=== PATIENT | female | born 1955 | race Caucasian/White ===

== ENCOUNTER 2025-08-22 03:29 | Emergency (ER) | payer OTHER, MEDICARE, SELFPAY ==
[2025-08-22 03:35] VITALS: BP 195/72; PULSE 69; RESP 16; TEMP 36.5; O2SAT 98; BMI 23.4
--- NOTE | 2025-08-22 03:40 | ECG_ITS ---
Test Reason : PALPITATIONS Blood Pressure : */* mmHG Vent. Rate : 68 BPM Atrial Rate : 68 BPM P-R Int : 150 ms QRS Dur : 84 ms QT Int : 428 ms P-R-T Axes : 61 50 50 degrees QTcB Int : 455 ms Sinus rhythm with Premature supraventricular complexes Possible Left atrial enlargement Borderline ECG No previous ECGs available Referred By: Generic ED Physician Electronically Signed By: KARLA NIXON
[2025-08-22 03:46] VITALS: BP 187/87; PULSE 72; RESP 16; TEMP 36.5; O2SAT 100
[2025-08-22 03:57] LABS: Hematocrit 43.5 % (37.0-47.0); Hemoglobin 14.6 g/dl (12.0-16.0); Imm Gran Abs Auto 0.01 X10*3/uL (0.00-0.03); Imm Gran Pct Auto 0.1 % (0.0-0.4); Lymphocytes Absolute Auto 2.2 X10*3/uL (1.2-4.9); MANUAL DIFF FLAG NO; Mean Corpuscular HGB Conc 33.6 g/dl (31.0-35.0); Mean Corpuscular Hemoglobin 30.8 pg (27.0-33.0); Mean Corpuscular Volume 91.8 fL (80.0-98.0); NRBC Abs Auto 0.000 X10*3/uL (0.0-0.012); NRBC Pct Auto 0.0 /100WBC (0.0-0.2); Platelet Count 178 X10*3/uL (160-400); Red Blood Count 4.74 X10*6/uL (4.20-5.50); White Blood Count 6.8 X10*3/uL (4.8-10.8)
[2025-08-22 04:21] LABS: Alanine Aminotransferase 28 U/L (0-31); Albumin Level 4.3 g/dL (3.5-5.0); Alkaline Phosphatase 59 U/L (39-117); Anion Gap 14 (12-20); Aspartate Amino Transferase 28 U/L (5-31); Blood Urea Nitrogen 24 mg/dL (9-16); Calcium 9.1 mg/dL (8.4-10.2); Carbon Dioxide 27 mmol/L (22-29); Chloride 106 mmol/L (96-108); Creatinine Clr Calc Pharmacy 34.3; Estimated Glomerular Filt Rate 48; Magnesium 2.2 mg/dL (1.6-2.6); Potassium 4.3 mmol/L (3.3-5.1); Sodium 143 mmol/L (135-145); Total Protein 7.6 g/dL (6.5-8.0)
[2025-08-22 04:23] LABS: IDNOW Serial# 55D5AD1C; Influenza B2 Negative (Negative)
[2025-08-22 04:24] LABS: COVID-19 Test Negative (Negative); IDNOW Serial# 58CA691E
[2025-08-22 04:25] LABS: Troponin-I High Sensitivity 9.9 ng/L (<3.5-17.0)
--- OUTSIDE RECORDS SUMMARY | 2025-08-22 04:51 | XMS_ITS | Encounter Summary ---
Author Organization [facility] Address [address] [facility] [address] [place] [phone] Phone Care Team Providers Care Shell Fisherman Name Role Phone Dena Maza MD, MPH Primary Care Provider + Encounter Details Date Type Department Care Team (Late st Contact Info) Description 12/30/2024 Ancillary Orders [facility], [facility]- [address] [address] Dena Maza MD, MPH [address] [place] [address] [email or web address] Abnormal mammogram (Primary Dx) Social History Tobacco Use Types Packs/Day Years Used Date Smoking Tobacco: Former Cigarettes 0.3 7 1 973 - 1980 Smokeless Tobacco: Never Alcohol Use Standard Drinks/Week Comments Yes 7 (1 standard drink = 0.6 oz pur e alcohol) 1-2 per day Child or Family Care Answer Date Record ed Do you have problems with on e of the following making it difficult for you to work, study, or receive health care? No 08/13/2022 Education Answer Date Recorded Are you interested in more education? Not on carlo e 08/23/2024 Are you concerned about learning? Not on file 08/23/2024 No 08/23/2024 No 08/23/2024 Food Answer Date Recorded Within the past 6 months we worried whether our food would run out before we got money to buy more. Never True 08/13/2022 Within the past 6 months the food we bought just didn't last and we didn't have enough money to get more. Never True Residential Stability Answer Date Recor ded What is your housing situation today? I have anson freeman 08/13/2022 How many times have you move d in the past 12 months? Zero (I did not move) 08/13/2022 Paying for Meds Answer Date Recorded Do you have trouble paying for medicines? No 08/13/2022 Paying Utility Bills Answer Date Record ed Do you have trouble paying your heating or elect ricity bill? No 08/13/2022 Transportation Answer Date Recorded Has the lack of transportati on kept you from medical appointments or from getting medications? No 08/13/2022 Unemployment Answer Date Recorded Are you currently unemployed or working on a part-time or temporary basis, and looking for work? I choose not to answer 08/13/2022 Digital Access Answer Date Recorded No 03/23/2023 No 03/23/2023 Reliable internet access at home? Not on file 03/23/2023 Device with a working camera? Not on file Intimate Partner Violence Answer Date R ecorded Are you denied basic needs s uch as food, clothing, or medical care? No 12/18/2023 In the past 12 months have y ou been in a relationship with a person who hurts, threatens, or tries to control you? No 12/18/2023 Are you denied basic needs s uch as food, clothing, or medical care? No 12/18/2023 In the past 12 months have y ou been in a relationship with a person who hurts, threatens, or tries to control you? 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 Not on file Not on file documented as of this encounter Plan of Treatment Not on file documented as of this encounter Visit Diagnoses Diagnosis Abnormal mammogram- Primary Abnormal mammogram, unspecified documented in this encounter Additional Health Concerns Assessment Noted Time PHQ-2 Depression Total Score: 0 12/26/19 20 1:10 PM EST documented as of this encounter Care Teams Shell Fisherman Relationship Specialty Start Date End Date Dena Maza MD, MPH [address] [place] [phone] [email or web address] PCP - General Family Medicine 12/18/23 documented as of this encounter Additional Source Comments The information contained in this document represents components of the legal health record. It is not the complete legal health record.[facility]
--- OUTSIDE RECORDS SUMMARY | 2025-08-22 04:51 | XMS_ITS | Clinical Summary ---
Author Organization [facility] Address [address] [facility] [address] [place] [address] Phone Care Team Providers Care Contracting Specialist Name Role Phone Dena Maza MD, MPH Primary Care Provider + Allergies Active Allergy Reactions Criticality Noted Date Comments Amoxicillin 07/08/2016 Other reaction(s): rash Codeine 07/08/2016 Other reaction(s): rash Sulfamethoxazole-Trimethopri m 07/08/2016 Other reaction(s): jittery? Medications biotin 1 mg tablet Take 1,000 mcg by mouth daily. Active Active Problems Problem Noted Date Diagnosed Date Acquired hypothyroidism 03/09/2018 Right shoulder pain 02/01/2018 Family History Medical History Relation Comments No Known Problems Brother Coronary artery disease Father Heart disease Father Cancer Maternal Aunt 1 Breast cancer Maternal Aunt 2 No Known Problems Maternal Grandfather No Known Problems Maternal Grandmother No Known Problems Maternal Uncle Cancer Mother Infl. arthritis Mother Lung cancer Mother No Known Problems Paternal Aunt No Known Problems Paternal Grandfather No Known Problems Paternal Grandmother No Known Problems Paternal Uncle Coronary artery disease Sister Infl. 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 Not on file Not on file Last Filed Vital Signs Vital Sign Reading Time Taken Comments Blood Pressure 124/46 12/18/2023 12:25 PM EST Pulse 52 12/18/2023 12:25 PM EST Temperature 36.5 C (97.7 F) 12/18/2023 10:24 AM EST Respiratory Rate 19 12/18/2023 12:25 PM EST Oxygen Saturation 100% 12/18/2023 12:25 PM EST Inhaled Oxygen Concentration - - Weight 56.7 kg (125 lb) 12/16/2023 1:12 PM EST Height 157.5 cm (5' 2 ) 12/16/2023 1:12 PM EST Body Mass Index 22.86 12/16/2023 1:12 PM EST Plan of Treatment Health Maintenance Due Date Last Done Comments Adult Td,Tdap Booster 1955 COLOGUARD 1998 FIT TEST 1998 FOBT 1998 SIGMOIDOSCOPY 1998 VIRTUAL COLONOSCOPY 1998 PNEUMOCOCCAL VACCINES (50+ years) (1 of 1 - PCV) 2003 OSTEOPOROSIS SCREENING INITIAL (ONE-TIME) 2018 DEPRESSION SCREENING 12/25/2020 12/26/2019 INFLUENZA VACCINE (#1) 2025 07/26/2022 COVID-19 VACCINE ( season) 2025 10/03/2022, 09/28/2021, 12/26/2020, Additional history exists MAMMOGRAM 12/28/2026 12/28/2024, 12/25, 04/23/2018 LIPID PANEL 08/23/2027 08/23/2022, 0311/2019, 03/09/2018 ZOSTER VACCINES (1 of 2) 12/23/2027 Pos tponed from 2003 (Patient Declines / Guardian Declines) RSV VACCINE (1 - 1-dose 75+ series) 01/02/2028 COLONOSCOPY 12/18/2033 12/18/2023 COLORECTAL CANCER SCREENING 12/18/2033 SMOKING STATUS SCREENING (Once After 26 Yrs) Completed 01/24/2025 HEPATITIS A VACCINES Aged Out No long er eligible based on patient's age to complete this topic HIB VACCINES Aged Out No longer eligi ble based on patient's age to complete this topic MENINGOCOCCAL VACCINES (ACWY) Aged Out No longer eligible based on patient's age to complete this topic MENINGOCOCCAL VACCINES (B) Aged Out N o longer eligible based on patient's age to complete this topic Medical Devices Not on file Procedures Procedure Name Priority Date/Time Associated Diagnosis Comments BI MAMMOGRAM SCREENING WITH TOMOSYNTHESIS WITH CAD (BILATERAL) Routine 12/28/2024 11:27 AM EST Breast screening ENDOSCOPY, COLON 12/18/2023 11:28 AM EST LIPID PANEL Routine 08/23/2022 11:44 AM EDT Pure hypercholesterolemia from Last 3 Months or Most Recently Relevant to Health Maintenance Results * (ABNORMAL) BI MAMMOGRAM SCREENING WITH TOMOSYNTHESIS WITH CAD (BILATERAL) (12/28/2024 11:27 AM EST) Anatomical Region Laterality Modality Breast Left, Breast Right, Breast Bilateral Bila teral Mammography 12/29/2024 12:2 0 PM EST Impressions 12/29/2024 12:23 PM EST 1. Focal asymmetry in the right breast for which additional imaging is recommended with diagnostic mammography and possible ultrasound. 2. No mammographic evidence of malignancy in the left breast. BI-RADS 0 INCOMPLETE Needs additional imaging evaluation The patient will be notified of the results and recommendations. The mammography department will contact the patient to arrange for the additional imaging. Narrative 12/29/2024 12:23 PM EST BI MAMMOGRAM SCREENING WITH TOMOSYNTHESIS WITH CAD (BILATERAL) Additional patient information: Screening. COMPARISON: Comparison is made with relevant prior imaging. Breast composition: The breast tissue is heterogeneously dense which may obscure small masses. FINDINGS: Right A focal asymmetry is present in the upper inner right breast at middle depth. Left No abnormal masses, suspicious calcifications, or other significant findings are identified mammographically in the left breast. Procedure Note Anya Hollidya MD - 12/29/2024 BI MAMMOGRAM SCREENING WITH TOMOSYNTHESIS WITH CAD (BILATERAL) Additional patient information: Screening. COMPARISON: Comparison is made with relevant prior imaging. Breast composition: The breast tissue is heterogeneously dense which mayobscure small masses. FINDINGS: Right A focal asymmetry is present in the upper inner right breast at middledepth. Left No abnormal masses, suspicious calcifications, or other significantfindings are identified mammographically in the left breast. IMPRESSION: 1. Focal asymmetry in the right breast for which additional imaging isrecommended with diagnostic mammography and possible ultrasound. 2. No mammographic evidence of malignancy in the left breast. BI-RADS 0 INCOMPLETE Needs additional imaging evaluation The patient will be notified of the results and recommendations. Themammography department will contact the patient to arrange for theadditional imaging. us Dena Maza MD, MPH IMG MG EXAMS Final Re sult * ENDOSCOPY, COLON (12/18/2023 11:28 AM EST) Narrative Transcriptions Christina Sosa MD - 12/18/2023 11:28 AM EST [facility] Patient Name: Anna Carrillo Attending MD:: CHRISTINA SOSA MD, Procedure Date: 12/18/2023 11:28 AM Date of : 1955 Age: 68 Admit Type: Outpatient Gender: Female Room: [place] [address] Referring MD: Dena Maza MD Exam Type: Colonoscopy Indications: Screening for colorectal malignant neoplasm, Thisis the patient's first colonoscopy Medications: Propofol per Anesthesia Procedure: Informed consent was obtained from the patientafter discussion of the indications, limitations, alternatives, benefits, and risks of the procedure. Risks specifically discussed include but are not limited to medication reactions, missed lesions, bleeding, perforation, or the need for emergent surgery. Throughout the procedure, the patient's blood pressure, pulse, end-tidal CO2, and oxygensaturations were monitored continuously. The Olympus pediatric variable colonoscopePCF-[id number] #2 was introduced through the anus and advanced tothe cecum, identified by appendiceal orifice andileocecal valve. The ileocecal valve, appendiceal orifice,and rectum were photographed. The colonoscopy was performed with difficulty due to significantlooping and a tortuous colon. Successful completion of the procedure was aided by changing the patient to a supine position and applying abdominal pressure.The patient tolerated the procedure well. The qualityof the bowel preparation was good. The bowelpreparation used was Miralax via split dose instruction. Complications: No immediate complications. Estimated blood loss:None. Findings: The perianal and digital rectal examinations were normal. Pertinent negatives include no palpablerectal lesions. The retroflexed view of the distal rectum and anal verge was normal and showed no anal or rectal abnormalities. The colon (entire examined portion) wassignificantly redundant. The colon (entire examined portion) wassignificantly tortuous. A few small-mouthed diverticula were found in the sigmoid colon. A diminutive polyp was found in the cecum. Thepolyp was sessile. The polyp was removed with a coldbiopsy forceps. Resection and retrieval were complete. Retroflexion in the right colon was performed. Impression: - The distal rectum and anal verge are normal on retroflexion view. - Redundant colon. - Tortuous colon. - Diverticulosis in the sigmoid colon. - One diminutive polyp in the cecum, removed with a cold biopsy forceps. Resected and retrieved. Recommendation: - If the pathology report reveals adenomatoustissue, then repeat the colonoscopy for surveillance in 5 years. CHRISTINA SOSA MD 12/18/2023 12:11:33 PM This report has been signed electronically. Number of Addenda: 0 Note Initiated On: 12/18/2023 11:28 AM Procedure Code(s): --- Professional --- 25556, Colonoscopy, flexible; with biopsy, single or multiple --- Technical --- 44820, Colonoscopy, flexible; with biopsy, single or multiple Diagnosis Code(s): --- Professional --- Q43.8, Other specified congenital malformations of intestine Z12.11, Encounter for screening for malignantneoplasm of colon D12.0, Benign neoplasm of cecum K57.30, Diverticulosis of large intestine without perforation or abscess without bleeding --- Technical --- Q43.8, Other specified congenital malformations of intestine Z12.11, Encounter for screening for malignantneoplasm of colon D12.0, Benign neoplasm of cecum K57.30, Diverticulosis of large intestine without perforation or abscess without bleeding CPT copyright 2021 [employer]. All rights reserved. The codes documented in this report are preliminary and upon hospital coder reviewmay be revised to meet current compliance requirements. Procedure Date: 12/18/2023 11:28:[address] [place] [phone] Dena Maza MD, MPH GI PROCEDURE ORDERABLES Final Result * (ABNORMAL) Lipid panel (08/23/2022 11:44 AM EDT) HDL 77 mg/dL [facility] Comment: Interpretation <40 mg/dL: Low HDL cholesterol (major risk factor for CHD) Greater than or equal to 60 mg/dL: High HDL cholesterol ( negative risk factor for CHD) HDL - cholesterol is affected by a number of factors, e.g. smoking, excerise, hormones, sex and age. CHOLESTEROL 258(H) 0 - 240 mg/dL [facility] TRIGLYCERIDES 68 30 - 160 mg/dL [facility] LDL 167(H) 50 - 129 mg/dL [facility] Comment: LDL levels in terms of risk for coronary heart disease: <100 mg/dL: Optimal 100-129 mg/dL: Near or above optimal 130-159 mg/dL: Borderline high 160-189 mg/dL: High >190 mg/dL: Very High CARDIAC RISK RATIO 3.4 3.3 - 4.4 [facility] Blood 08/23/2022 11:4 4 AM EDT 08/23/2022 11:52 AM EDT us Tabatha Soares MD LAB BLOOD ORDERABLES Final Re sult [facility] [address] [place], [place] [phone] from Last 3 Months or Most Recently Relevant to Health Maintenance Insurance [employer] [facility] CHOICE [employer] Register My Info CHOICE CHOICE CHOICE CHOICE [facility] CHOICE [facility] CHOICE [employer] Care Teams Contracting Specialist Relationship Specialty Start Date End Date Dena Maza MD, MPH [address] [place] [phone] [email or web address] PCP - General Family Medicine 12/18/23 Additional Source Comments The information contained in this document represents components of the legal health record. It is not the complete legal health record.[facility]
--- OUTSIDE RECORDS SUMMARY | 2025-08-22 04:51 | XMS_ITS | Encounter Summary ---
Author Organization [facility] Address [address] [facility] [address] [place] [phone] Phone Care Team Providers Care Nursery Manager Name Role Phone Dena Maza MD, MPH Primary Care Provider + Encounter Details Date Type Department Care Team (Latest Contact Info) Description 01/02/2025 Ancillary Orders [facility], [facility]- [address] [address] Dena Maza MD, MPH [address] [place], [place] [phone] [email or web address] Abnormal mammogram (Primary Dx); Other abnormal and inconclusive findings on diagnostic imaging of breast Social History Tobacco Use Types Packs/Day Years [...] 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 Nodular appearing parenchymal pattern is stable dating back to 2018. No mammographic evidence of malignancy on the right. Annual screening mammography is recommended. BI-RADS 1 NEGATIVE Results and recommendations were communicated to the patient at time of examination. Narrative 01/24/2025 2:27 PM EDT BI MAMMOGRAM DIAGNOSTIC WITH TOMOSYNTHESIS WITH CAD (RIGHT) Additional patient information: Focal asymmetry in the right breast on recent screening mammogram. COMPARISON: Comparison is made with relevant prior imaging. Breast composition: There are scattered areas of fibroglandular density. FINDINGS: Right Mammogram: The focal asymmetry seen on screening mammography in the right breast does not persist, consistent with superimposition of normal breast tissue. There is no underlying mass, architectural distortion, suspicious calcifications or other concerning findings. us Dena Maza MD, MPH IMG MG EXAMS Final Re sult documented in this encounter Visit Diagnoses Diagnosis Abnormal mammogram- Primary Abnormal mammogram, unspecified Other abnormal and inconclusive findings on diagnostic imaging of breast Other abnormal and inconclusive findings on diagnostic imaging of breast documented in this encounter Additional Health Concerns Assessment Noted Time PHQ-2 Depression Total Score: 0 12/26/19 20 1:10 PM EST documented as of this encounter Care Teams Nursery Manager Relationship Specialty Start Date End Date Dena Maza MD, MPH [address] [place] [phone] PCP - General Family Medicine 12/18/23 documented as of this encounter Additional Source Comments The information contained in this document represents components of the legal health record. It is not the complete legal health record.[facility]
--- OUTSIDE RECORDS SUMMARY | 2025-08-22 04:51 | XMS_ITS | Encounter Summary ---
Author Organization [facility] Address [address] [facility] [address] [place] [phone] Phone Care Team Providers Care Latin Dance Instructor Name Role Phone Dena Maza MD, MPH Primary Care Provider + Encounter Details Date Type Department Care Team (Late st Contact Info) Description 07/26/2024 Procedure [facility], [address] [address] Social History Tobacco Use Types Packs/Day Years [...] Answer Date Recorded Are you interested in help w ith more adult education (for example, completing high school, GED, job training, learning the Togolese language, technical skills, or developing parenting skills)? I choose not to answer 08/13/2022 Food Answer Date Recorded Within the past [...] your housing situation today? 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 Not on file documented as of this encounter Plan of Treatment Not on file documented as of this encounter Visit Diagnoses Not on filedocumented in this encounter Additional Health Concerns Assessment Noted Time PHQ-2 Depression Total Score: 0 12/26/19 20 1:10 PM EST documented as of this encounter Care Teams Latin Dance Instructor Relationship Specialty Start Date End Date Dena Mzaa MD, MPH [address] [place] [phone] PCP - General Family Medicine 12/18/23 documented as of this encounter Additional Source Comments The information contained in this document represents components of the legal health record. It is not the complete legal health record.[facility]
--- OUTSIDE RECORDS SUMMARY | 2025-08-22 04:51 | XMS_ITS | Encounter Summary ---
Author Organization [facility] Address [address] 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 Not on file documented as of this encounter Plan of Treatment Not on file documented as of this encounter Visit Diagnoses Diagnosis Asymptomatic menopausal state- Primary documented in this encounter Additional Health Concerns Assessment Noted Time PHQ-2 Depression Total Score: 0 12/26/19 20 1:10 PM EST documented as of this encounter Care Teams Medical Doctor Md/Medical Director Relationship Specialty Start Date End Date Dena Maza MD, MPH [address] [place] [phone] [email or web address] PCP - General Family Medicine 12/18/23 documented as of this encounter Additional Source Comments The information contained in this document represents components of the legal health record. It is not the complete legal health record.[facility]
--- OUTSIDE RECORDS SUMMARY | 2025-08-22 04:51 | XMS_ITS | Encounter Summary ---
Author Organization [facility] Address [address] [address] Phone Care Team Providers Care Electric Meter Installer Helper Name Role Phone Tabatha Soares MD Primary Care Provider [phone] Dena Maza MD, MPH Primary Care Provider + Encounter Details Date Type Department Care Team (Late st Contact Info) Description 12/20/2021 Procedure Pass Non-Invasive Cardiology [address] [place] [address] Social History Tobacco Use Types Packs/Day Years Used Date Smoking Tobacco: Never Smokeless Tobacco: Never Alcohol Use Standard Drinks/Week Comments Yes 0 (1 standard drink = 0.6 oz pur e alcohol) social Comments No Sex and Gender Information Value Date Recorded Sex Assigned at Not on file Legal Sex Female 9:59 PM EDT Gender Identity Not on file Sexual Orientation Not on file 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 Not on file documented as of this encounter Plan of Treatment Not on file documented as of this encounter Visit Diagnoses Not on filedocumented in this encounter Additional Health Concerns Infection Onset Date Last Indicated Resolved Time CoV-Risk Comment:Per Ambulatory Triage Form 02/25/2022 02/25/202202/26 1:24 PM EDT COVID-19 02/25/2022 02/25/2022 03/18/2022 1:22 AM EDT CoV-Risk 06/06/2022 06/06/2022 06/17/2022 1:22 AM EDT COVID-19 10/27/2023 10/27/2023 11/17/2023 1:21 AM EST Assessment Noted Time PHQ-2 Depression Total Score: 0 12/26/19 20 1:10 PM EST documented as of this encounter Care Teams Electric Meter Installer Helper Relationship Specialty Start Date End Date Tabatha Soares MD [address] [place] [address], [address] [place] [address] [email or web address] PCP - General 10/29/17 12/17/23 Dena Maza MD, MPH [address] [place] [address] [email or web address] PCP - General Family Medicine 12/18/23 documented as of this encounter Additional Source Comments The information contained in this document represents components of the legal health record. It is not the complete legal health record.[facility]
--- OUTSIDE RECORDS SUMMARY | 2025-08-22 04:51 | XMS_ITS | Encounter Summary ---
Author Organization [facility] Address 399 [facility] [address] [place] [address] Phone Care Team Providers Care [employer] Name Role Phone Dena Maza MD, MPH Primary Care Provider + Encounter Details Date Type Department Care Team (Latest Contact Info) Description 07/26/2024 Transcribe Orders Virtual Department 30 [place] [address] Dena Maza MD, MPH [address] [place], [place] [phone] [email or web address] Breast screening (Primary Dx) Social History Tobacco Use Types [...] high school, GED, job training, learning the Turkish language, technical skills, or developing parenting skills)? 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 Procedure Note Anya Holliday MD - 12/29/2024 BI MAMMOGRAM SCREENING WITH [...] the patient to arrange for theadditional imaging. Dena Maza MD, MPH IMG MG EXAMS Final Re sult documented in this encounter Visit Diagnoses Diagnosis Breast screening- Primary Breast screening, unspecified Breast screening Breast screening, unspecified documented in this encounter Additional Health Concerns Assessment Noted Time PHQ-2 Depression Total Score: 0 12/26/19 20 1:10 PM EST documented as of this encounter Care Teams [employer] Relationship Specialty Start Date End Date Dena Maza MD, MPH [address] [place] [address] [email or web address] PCP - General Family Medicine 12/18/23 documented as of this encounter Additional Source Comments The information contained in this document represents components of the legal health record. It is not the complete legal health record.[facility]
--- OUTSIDE RECORDS SUMMARY | 2025-08-22 04:51 | XMS_ITS | Encounter Summary ---
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 It is not the complete legal health record.[facility]
--- OUTSIDE RECORDS SUMMARY | 2025-08-22 04:52 | XMS_ITS | Encounter Summary ---
Author Organization [facility] Address [address] [facility] [address] [place] [address] Phone Care Team Providers Care Associate Research Scientist Name Role Phone Dena Maza MD, MPH Primary Care Provider + Encounter Details Date Type Department Care Team (Late st Contact Info) Description 12/18/2023 Procedure Pass [facility] Endoscopy Admitting Dept Virtual Department 30 [place] [address] Social History Tobacco Use Types Packs/Day Years [...] high school, GED, job training, learning the Danish language, technical skills, or developing parenting skills)? 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 Not on file documented as of this encounter Plan of Treatment Not on file documented as of this encounter Visit Diagnoses Not on filedocumented in this encounter Additional Health Concerns Assessment Noted Time PHQ-2 Depression Total Score: 0 12/26/19 20 1:10 PM EST documented as of this encounter Care Teams Associate Research Scientist Relationship Specialty Start Date End Date Dena Maza MD, MPH [address] [place] [address] PCP - General Family Medicine 12/18/23 documented as of this encounter Additional Source Comments The information contained in this document represents components of the legal health record. It is not the complete legal health record.[facility]
--- OUTSIDE RECORDS SUMMARY | 2025-08-22 04:52 | XMS_ITS | Encounter Summary ---
Author Organization [facility] Address 399 [facility] [address] [place] [address] Phone Care Team Providers Care Register Clerk Name Role Phone Tabatha Soares MD Primary Care Provider [phone] Dena Maza MD, MPH Primary Care Provider + Encounter Details Date Type Department Care Team (Late st Contact Info) Description 04/20/2023 Procedure Pass [facility] Endoscopy Admitting Dept Virtual Department [address] [place] [address] Social History Tobacco Use Types Packs/Day Years [...] high school, GED, job training, learning the Greenlandic language, technical skills, or developing parenting skills)? [...] with a working camera? 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 Not on file documented as of this encounter Plan of Treatment Not on file documented as of this encounter Visit Diagnoses Not on filedocumented in this encounter Additional Health Concerns Infection Onset Date Last Indicated Resolved Time COVID-19 10/27/2023 10/27/2023 11/17/2023 1:21 AM EST Assessment Noted Time PHQ-2 Depression Total Score: 0 12/26/19 20 1:10 PM EST documented as of this encounter Care Teams Register Clerk Relationship Specialty Start Date End Date Tabatha Soares MD [address] [place] [address], [address] [place] [address] [email or web address] PCP - General 10/29/17 12/17/23 Dena Maza MD, MPH [address] [place] [address] PCP - General Family Medicine 12/18/23 documented as of this encounter Additional Source Comments The information contained in this document represents components of the legal health record. It is not the complete legal health record.[facility]
--- OUTSIDE RECORDS SUMMARY | 2025-08-22 04:52 | XMS_ITS | Encounter Summary ---
Author Organization [facility] Address 399 [facility] [address] [place] [address] Phone Care Team Providers Care Carrier Washer Name Role Phone Dena Maza MD, MPH Primary Care Provider + Encounter Details Date Type Department Care Team (Late st Contact Info) Description 04/27/2024 Transcribe Orders [facility] [address] [place], [place] [phone] Dena Maza MD, MPH [address] [place], [place] [phone] [email or web address] Social History Tobacco Use Types Packs/Day Years [...] high school, GED, job training, learning the Urdu language, technical skills, or developing parenting skills)? 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 file Not on file documented as of this encounter Plan of Treatment Not on file documented as of this encounter Visit Diagnoses Not on filedocumented in this encounter Additional Health Concerns Assessment Noted Time PHQ-2 Depression Total Score: 0 12/26/19 20 1:10 PM EST documented as of this encounter Care Teams Carrier Washer Relationship Specialty Start Date End Date Dena Maza MD, MPH [address] [place] [phone] [email or web address] PCP - General Family Medicine 12/18/23 documented as of this encounter Additional Source Comments The information contained in this document represents components of the legal health record. It is not the complete legal health record.[facility]
--- OUTSIDE RECORDS SUMMARY | 2025-08-22 04:52 | XMS_ITS | Encounter Summary ---
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 It is not the complete legal health record.[facility]
--- OUTSIDE RECORDS SUMMARY | 2025-08-22 04:52 | XMS_ITS | Encounter Summary ---
Author Organization [facility] Address 399 [facility] [address] [place] [address] Phone Care Team Providers Care Tree Trimmer Name Role Phone Tabatha Soares MD Primary Care Provider [phone] Dena Maza MD, MPH Primary Care Provider + Reason for Referral * Hospital - Outpatient - Closed Specialty Diagnoses / Procedures Referred By Tab t Referred To Contact Diagnoses Palpitations Procedures MCT (Mobile Cardiac Telemetry) Tabatha Soares MD Phone: tel: fax: [email or web address] Referral ID Status Reason Start Date Expiration Date Visits Re quested Visits Authorized [id number] Closed 01/02/2022 01/02/2023 1 1 Encounter Details Date Type Department Care Team (Late st Contact Info) Description 01/02/2022 Ancillary Orders [facility] [address] [place] [address] [place] [address] Tabatha Soares MD [address] [place] [address], [address] [place] [address] [email or web address] Palpitations Social History Tobacco Use Types Packs/Day Years [...] 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 No abnormal beats are seen. No tachyarrhythmias. Conclusion: Normal event monitor. us Tabatha Soares MD [facility] ORDERABLE S Final Result documented in this encounter Visit Diagnoses Diagnosis Palpitations Palpitations documented in this encounter Additional Health Concerns Infection [...] documented as of this encounter Care Teams Tree Trimmer Relationship Specialty Start Date End Date Tabatha Soares MD [address] [place] [address], 2[address] [place] [address] PCP - General 10/29/17 12/17/23 Dena Maza MD, MPH [address] [place] [address] PCP - General Family Medicine 12/18/23 documented as of this encounter Additional Source Comments The information contained in this document represents components of the legal health record. It is not the complete legal health record.[facility]
[2025-08-22 04:55] LABS: Appearance Urine Clear; Glucose Urine UA Negative (Negative); PH 6.5 (5.0-9.0); Specific Gravity - Urine 1.010 (1.005-1.025)
[2025-08-22 06:00] VITALS: BP 114/50; PULSE 69; RESP 16; TEMP 36.6; O2SAT 94
--- NOTE | 2025-08-22 06:39 | ED.ARRPALP ---
HPI - Arrhythmia/Palpitations General Chief Complaint: Arrhythmia/Palpitations Stated Complaint: difficulty breathing Time Seen by Provider: 08/22/25 03:48 Source: patient Mode of arrival: ambulatory Limitations: no limitations History of Present Illness ED Provider: Dr. Rafaela Goldberg HPI narrative: 70-year-old female with a history of hypertension presenting with palpitations and shortness of breath that began tonight around 3:00 a.m.. Admits she was lying on the couch, sleeping when the symptoms began. They woke her from sleep. Denies associated chest pain. Had been feeling well prior to this. Denies fever, cough or cold-type symptoms, abdominal pain, nausea, vomiting, diarrhea, urinary complaints, lower extremity edema or pain. Related Data Allergies Allergy/AdvReac Type Severity Reaction Status Date / Time amoxicillin (AMOXICILLIN) Allergy Unknown UNKNOWN Verified 08/22/25 03:36 codeine (CODEINE) Allergy Unknown UNKNOWN Verified 08/22/25 03:36 Review of Systems Review of Systems: as per HPI, full review of systems performed and negative but for the above mentioned pertinent positives and negatives. [facility] Social History Social History Smoked in Last 30 Days: No Use of substances other than those prescribed or required for medical reasons: No Advance Directives: No Advance Directives Information Provided: Yes Do you have a plan to hurt others: No Plan Physical Exam Exam: Exam: GENERAL: Anxious, nontoxic. SKIN: Normal skin color for ethnicity, warm, dry, intact, no rashes noted. HEENT: Normocephalic, atraumatic, no stridor, posterior oropharynx nonerythematous, dentition intact, EOMI. NECK: Soft, supple, full ROM, midline structures nontender, no step-offs, no deformities, no lymphadenopathy. CHEST: Heart regular rhythm, no murmurs, symmetric chest rise and fall, no crepitus. PULMONARY: Clear to auscultation bilaterally, no labored breathing, no wheezes/rhales/ rhonchi. ABDOMINAL: Soft, nondistended, nontender, positive bowel sounds in all quadrants. : Deferred. MUSCULOSKELETAL: Normal tone, full range of motion, no deformities, no peripheral edema. NEURO: Alert and oriented x3, CN II through XII intact, equal strength and sensation bilateral upper and lower extremities, no focal neurologic deficits. PSYCHIATRIC: Anxious affect, fluid speech, good eye contact and appropriate demeanor. Vital Signs: Vital Signs: Last Vital Signs Temp 97.9 F 08/22/25 07:01 Pulse 69 08/22/25 07:01 Resp 16 08/22/25 07:01 BP 114/50 L 08/22/25 07:01 Pulse Ox 94 08/22/25 07:01 O2 Del Method Room Air 08/22/25 07:01 BMI result Body Mass Index 23.4 Medical Decision Making Medical Decision Making [facility] Narrative: Patient presenting with chief complaint of heart palpitations. Differential diagnosis includes heart palpitations, electrolyte abnormality, arrhythmia, ACS, thyroid dysfunction, substance use including stimulants such as caffeine, amphetamines, drug toxicity, among many others. Patient's blood pressure improved, anxiety improved. She is indications requesting discharge. Using shared decision making, plan for discharge home to follow-up with primary care and/or specialist.? Patient understands and agrees with plan for discharge.? Discharged home in stable condition. Differential Diagnosis Differential Diagnoses: The differential diagnosis associated with the presentation includes (as above) Admission/Observation Consideration of admission/observation: Escalation of care including admission/observation considered Lab Data [facility] Lab Attestation statement: I reviewed the patient's lab results. 08/22/25 03:51 08/22/25 03:51 Labs: Lab Results 08/22/25 08/22/25 Range/Units 03:51 04:50 WBC 6.8 (4.8-10.8) X10*3/uL RBC 4.74 (4.20-5.50) X10*6/uL Hgb 14.6 (12.0-16.0) g/dl Hct 43.5 (37.0-47.0) % MCV 91.8 (80.0-98.0) fL MCH 30.8 (27.0-33.0) pg MCHC 33.6 (31.0-35.0) g/dl RDW 13.2 (11.0-16.0) % Plt Count 178 (160-400) X10*3/uL MPV 11.4 (9.4-12.3) fL Immature Gran % (Auto) 0.1 (0.0-0.4) % Neut % (Auto) 52.2 (45-73) % Lymph % (Auto) 32.3 (20-40) % Lau[place] % (Auto) 10.6 (2-11) % Eos % (Auto) 3.8 (0-4) % Baso % (Auto) 1.0 (0-2) % Lymph # (Auto) 2.2 (1.2-4.9) X10*3/uL [place] # (Auto) 0.7 (0.1-1.2) X10*3/uL Eos # (Auto) 0.3 (0.0-0.4) X10*3/uL Baso # (Auto) 0.1 (0.0-0.2) X10*3/uL Abs Immat Gran (auto) 0.01 (0.00-0.03) X10*3/uL Absolute Neuts (auto) 3.5 (2.0-8.3) x10*3/uL Absolute Nucleated RBC 0.000 (0.0-0.012) X10*3/uL Nucleated RBC % (auto) 0.0 (0.0-0.2) /100WBC Sodium 143 (135-145) mmol/L Potassium 4.3 (3.3-5.1) mmol/L Chloride 106 (96-108) mmol/L Carbon Dioxide 27 (22-29) mmol/L Anion Gap 14 (12-20) BUN 24 H (9-16) mg/dL Creatinine 1.12 (0.5-1.4) mg/dL Estim Creat Clear Calc 34.3 Estimated GFR 48 Random Glucose 99 (60-115) mg/dL Calcium 9.1 (8.4-10.2) mg/dL Magnesium 2.2 (1.6-2.6) mg/dL Total Bilirubin 0.3 (0.0-1.0) mg/dL AST 28 (5-31) U/L ALT 28 (0-31) U/L Alkaline Phosphatase 59 (39-117) U/L Troponin I High Sens 9.9 (<3.5-17.0) ng/L Total Protein 7.6 (6.5-8.0) g/dL Albumin 4.3 (3.5-5.0) g/dL Urine Color Yellow Urine Appearance Clear Urine pH 6.5 (5.0-9.0) Ur Specific [place] 1.010 (1.005-1.025) Urine Protein Negative (Neg-Trace) mg/dL Urine Glucose (UA) Negative (Negative) mg/dL Urine Ketones Negative (Negative) mg/dL Urine Blood Negative (Negative) Urine Nitrite Negative (Negative) Ur Leukocyte Esterase Negative (Negative) COVID-19 (MALACHI) Negative (Negative) COVID-19 Clin Com See Note Influenza Type A (SINGH) Negative (Negative) Influenza Type B (SINGH) Negative (Negative) Influenza A & B Note See Note Independent Interpretation I performed an independent interpretation of an: EKG Interpretation: My independent interpretation of the ECG reveals normal sinus rhythm with rate of 68, normal axis, normal intervals, no ST elevations or depressions to suggest ischemic changes, no previous for comparison. Discharge Plan Discharge Clinical Impression: Palpitations, Anxiety Patient Disposition: Home, Self-Care Instructions: Heart Palpitations (ED) Additional Instructions: Try to stay hydrated over the next several days. Drink plenty of fluids and eat small, regular meals. Follow-up with your primary care doctor as soon as possible. Return to the emergency department with any new or worsening symptoms including: Chest pain, difficulty breathing, worsening palpitations, fevers greater than 100?, passing out, any new symptom that concerns you. Call 911 with any medical emergency. You could probably benefit from seeing a therapist or counselor to discuss the anxiety in your life. If you feel any thoughts of self-harm or hopelessness, you can always return to the emergency department for care. Interventions: ED Discharge Assessment Last Done: 08/22/25 07:01 Discharge Date/Time: 08/22/25 07:05 Print Language: [place] Islander
[2025-08-22 07:01] VITALS: BP 114/50; PULSE 69; RESP 16; TEMP 36.6; O2SAT 94
== END 2025-08-22 07:05 | disposition home or self-care (01) ==
PROVIDERS: Emergency Provider Emergency Medicine
DX: R00.2 Palpitations (principal); F41.9 Anxiety disorder, unspecified; R06.02 Shortness of breath; R94.31 Abnormal electrocardiogram [ECG] [EKG]; Z03.818 Encounter for observation for suspected exposure to other biological agents ruled out
CPT/HCPCS: 80053; 81003; 83735; 84484; 85025; 87502; 87635; 93005; 99284

== ENCOUNTER → 2025-08-22 03:40 | Outpatient (BNV) | payer OTHER, SELFPAY | PROVIDERS: Emergency Provider Emergency Medicine; Visit Provider Internal Medicine | DX: I49.1 Atrial premature depolarization (principal) | CPT/HCPCS: 93010 ==

== ENCOUNTER 2025-09-03 15:02 | Emergency (ER) | payer OTHER, SELFPAY ==
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
[2025-09-03 15:14] VITALS: BP 127/91; PULSE 74; RESP 18; TEMP 36.6; O2SAT 98; BMI 23.8
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
--- NOTE | 2025-09-03 16:34 | PC.NURSE ---
Patient in ED [address] scans at this time. Awaiting ED provider evaluation. Ambulates with steady gait. Care ongoing by this RN.
--- OUTSIDE RECORDS SUMMARY | 2025-09-03 16:53 | XMS_ITS | Clinical Summary ---
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 All rights reserved. The codes documented in this report are preliminary and upon fish checker reviewmay be revised to meet current compliance requirements. Procedure Date: 12/18/2023 11:28:[address] [place] [address] Dena Maza MD, MPH GI PROCEDURE ORDERABLES Final Result * (ABNORMAL) Lipid panel (08/23/2022 11:44 AM EDT) HDL 77 mg/dL [facility] Comment: Interpretation <40 mg/dL: Low HDL cholesterol (major risk factor for CHD) Greater than or equal to 60 mg/dL: High HDL cholesterol ( negative risk factor for CHD) HDL - cholesterol is affected by a number of factors, e.g. smoking, excerise, hormones, sex and age. CHOLESTEROL 258(H) 0 - 240 mg/dL [facility] TRIGLYCERIDES 68 30 - 160 mg/dL [facility] LDL 167(H) 50 - 129 mg/dL [facility] Comment: LDL levels in terms of risk for coronary heart disease: <100 mg/dL: Optimal 100-129 mg/dL: Near or above optimal 130-159 mg/dL: Borderline high 160-189 mg/dL: High >190 mg/dL: Very High CARDIAC RISK RATIO 3.4 3.3 - 4.4 C [facility] Blood 08/23/2022 11:4 4 AM EDT 08/23/2022 11:52 AM EDT us Tabatha Soares MD LAB BLOOD BKR ORDERABLES Barbie l Result [facility] [address] [place], [place] [id number] from Last 3 Months or Most Recently Relevant to Health Maintenance Insurance [address] [place] [id number] [employer] [facility] CHOICE [email or web address] CHOICE CHOICE CHOICE CHOICE CHOICE [employer] * Guarantor: Anna Carrillo Account Type Relation to Patient Date of Phone Billing Address Third Constitution Party Liability Self 1955 [address] [facility] [address] [place] [address] [place] [id number] [facility] Care Teams Caltrans Equipment Operator Relationship Specialty Start Date End Date Dena Maza MD, MPH [address] [place] [address] [email or web address] PCP - General Family Medicine 12/18/23 Additional Source Comments The information contained in this document represents components of the legal health record. It is not the complete legal health record.[facility]
--- OUTSIDE RECORDS SUMMARY | 2025-09-03 16:53 | XMS_ITS | Encounter Summary ---
Author Organization [facility] Address [address] [facility] [address] [place] [address] Phone Care Team Providers Care Corpsman Name Role Phone Dena Maza MD, MPH Primary Care Provider + Encounter Details Date Type Department Care Team (Latest Contact Info) Description 07/26/2024 Transcribe Orders Virtual Department [address] [place] [address] Dena Maza MD, MPH [address] [place], [place] [phone] [email or web address] Breast screening (Primary Dx) Social History Tobacco [...] high school, GED, job training, learning the Upper Sorbian language, technical skills, or developing parenting skills)? 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 It is not the complete legal health record.[facility]
--- OUTSIDE RECORDS SUMMARY | 2025-09-03 16:53 | XMS_ITS | Encounter Summary ---
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 Not [...] documented as of this encounter Care Teams Special Events Planner Relationship Specialty Start Date End Date Tabatha Soares MD [address] [place] [address], [address] [place] [address] [email or web address] PCP - General 10/29/17 12/17/23 Dena Maza MD, MPH [address] [place] [address] [email or web address] PCP - General Family Medicine 12/18/23 documented as of this encounter Additional Source Comments The information contained in this document represents components of the legal health record. It is not the complete legal health record.[facility]
--- OUTSIDE RECORDS SUMMARY | 2025-09-03 16:53 | XMS_ITS | Encounter Summary ---
Author Organization [facility] Address [address] [facility] [address] [place] [address] Phone Care Team Providers Care Nutritionists Name Role Phone Dena Maza MD, MPH Primary Care Provider + Encounter Details Date Type Department Care Team (Latest Contact Info) Description 01/02/2025 Ancillary Orders [facility], [facility]- [address] [address] Dena Maza MD, MPH [address] [place], [place] [phone] 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 It is not the complete legal health record.[facility]
--- OUTSIDE RECORDS SUMMARY | 2025-09-03 16:53 | XMS_ITS | Encounter Summary ---
Author Organization [facility] Address [address] [facility] [address] [place] [address] Phone Care Team Providers Care Needle Bar Molder Name Role Phone Dena Maza MD, MPH Primary Care Provider + Encounter Details Date Type Department Care Team (Late st Contact Info) Description 07/26/2024 Procedure Pass [facility], [address] [address] Social History Tobacco Use Types Packs/Day Years [...] high school, GED, job training, learning the Rwandan language, technical skills, or developing parenting skills)? 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 Not on file documented as of this encounter Plan of Treatment Not on file documented as of this encounter Visit Diagnoses Not on filedocumented in this encounter Additional Health Concerns Assessment Noted Time PHQ-2 Depression Total Score: 0 12/26/19 20 1:10 PM EST documented as of this encounter Care Teams Needle Bar Molder Relationship Specialty Start Date End Date Dena Maza MD, MPH [address] [place] [address] PCP - General Family Medicine 12/18/23 documented as of this encounter Additional Source Comments The information contained in this document represents components of the legal health record. It is not the complete legal health record.[facility]
--- OUTSIDE RECORDS SUMMARY | 2025-09-03 16:54 | XMS_ITS | Encounter Summary ---
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 file Not on file documented as of this encounter Plan of Treatment Not on file documented as of this encounter Visit Diagnoses Not on filedocumented in this encounter Additional Health Concerns Assessment Noted Time PHQ-2 Depression Total Score: 0 12/26/19 20 1:10 PM EST documented as of this encounter Care Teams Dynamo Tender Relationship Specialty Start Date End Date Dena Maza MD, MPH [address] [place] [address] PCP - General Family Medicine 12/18/23 documented as of this encounter Additional Source Comments The information contained in this document represents components of the legal health record. It is not the complete legal health record.[facility]
--- OUTSIDE RECORDS SUMMARY | 2025-09-03 16:54 | XMS_ITS | Encounter Summary ---
Author Organization [facility] Address [address] [facility] [address] [place] [address] Phone Care Team Providers Care Accounts Payable Payroll Coordinator Name Role Phone Tabatha Soares MD Primary Care Provider [phone] Dena Maza MD, MPH Primary Care Provider + Encounter Details Date Type Department Care Team (Late st Contact Info) Description 04/20/2023 Procedure Pass [facility] Endoscopy Admitting Dept Virtual Department [address] [place] [address] Social History Tobacco Use Types Packs/Day Years [...] high school, GED, job training, learning the Kiswahili language, technical skills, or developing parenting skills)? 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 It is not the complete legal health record.[facility]
--- OUTSIDE RECORDS SUMMARY | 2025-09-03 16:54 | XMS_ITS | Encounter Summary ---
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 Not on file documented as of this encounter Plan of Treatment Not on file documented as of this encounter Visit Diagnoses Diagnosis Abnormal mammogram- Primary Abnormal mammogram, unspecified documented in this encounter Additional Health Concerns Assessment Noted Time PHQ-2 Depression Total Score: 0 12/26/19 20 1:10 PM EST documented as of this encounter Care Teams Creative Coordinator Relationship Specialty Start Date End Date Dena Maza MD, MPH [address] [place] [address] [email or web address] PCP - General Family Medicine 12/18/23 documented as of this encounter Additional Source Comments The information contained in this document represents components of the legal health record. It is not the complete legal health record.[facility]
--- OUTSIDE RECORDS SUMMARY | 2025-09-03 16:54 | XMS_ITS | Encounter Summary ---
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 It is not the complete legal health record.[facility]
--- OUTSIDE RECORDS SUMMARY | 2025-09-03 16:54 | XMS_ITS | Encounter Summary ---
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 Not on file documented as of this encounter Plan of Treatment Not on file documented as of this encounter Visit Diagnoses Diagnosis Asymptomatic menopausal state- Primary documented in this encounter Additional Health Concerns Assessment Noted Time PHQ-2 Depression Total Score: 0 12/26/19 20 1:10 PM EST documented as of this encounter Care Teams Insurance Adviser Relationship Specialty Start Date End Date Dena Maza MD, MPH [address] [place] [address] [email or web address] PCP - General Family Medicine 12/18/23 documented as of this encounter Additional Source Comments The information contained in this document represents components of the legal health record. It is not the complete legal health record.[facility]
--- OUTSIDE RECORDS SUMMARY | 2025-09-03 16:54 | XMS_ITS | Encounter Summary ---
Author Organization [facility] Address [address] [facility] [address] [place] [address] Phone Care Team Providers Care Crop Quantitative Geneticist Name Role Phone Dena Maza MD, MPH Primary Care Provider + Encounter Details Date Type Department Care Team (Late st Contact Info) Description 04/27/2024 Transcribe Orders [facility] [address] [place], [place] [phone] Dena Maza MD, MPH [address] [place], [place] [phone] [email or web address] Social History Tobacco Use Types Packs/Day Years [...] high school, GED, job training, learning the Albanian language, technical skills, or developing parenting skills)? [...] documented as of this encounter Care Teams Crop Quantitative Geneticist Relationship Specialty Start Date End Date Dena Maza MD, MPH [address] [place] [phone] [email or web address] PCP - General Family Medicine 12/18/23 documented as of this encounter Additional Source Comments The information contained in this document represents components of the legal health record. It is not the complete legal health record.[facility]
--- OUTSIDE RECORDS SUMMARY | 2025-09-03 16:54 | XMS_ITS | Encounter Summary ---
Author Organization [facility] Address [address] [place] [id number] Phone Care Team Providers Care Bowling Ball Finisher Name Role Phone Tabatha Soares MD Primary Care Provider [phone] Dena Maza MD, MPH Primary Care Provider + Reason for Referral * Hospital - Outpatient - Closed Specialty Diagnoses / Procedures Referred By Tab t Referred To Contact Diagnoses Palpitations Procedures MCT (Mobile Cardiac Telemetry) Tabatha Soares MD Phone: tel: fax: mailto: Referral ID Status Reason Start Date Expiration Date Visits Re quested Visits Authorized [id number] Closed 01/02/2022 01/02/2023 1 1 Encounter Details Date Type Department Care Team (Late st Contact Info) Description 01/02/2022 Ancillary Orders [facility] [address] [place] [address] [place] [address] Tabatha Soares MD [address] [place] [address], [address] [place] [address] [email or web address] Palpitations Social History Tobacco Use Types Packs/Day [...] 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 It is not the complete legal health record.[facility]
--- OUTSIDE RECORDS SUMMARY | 2025-09-03 16:54 | XMS_ITS | Encounter Summary ---
Author Organization 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 It is not the complete legal health record.[facility]
[2025-09-03 17:39] VITALS: BP 98/71; PULSE 57; RESP 17; TEMP 36.6; O2SAT 98
[2025-09-03 19:55] VITALS: BP 167/57; PULSE 51; RESP 16; TEMP 36.4; O2SAT 98
== END 2025-09-03 20:02 | disposition home or self-care (01) ==
PROVIDERS: Emergency Provider Emergency Medicine; PCP Family Medicine
DX: S40.022A Contusion of left upper arm, initial encounter (principal); R51.9 Headache, unspecified; M54.50 Low back pain, unspecified; M54.2 Cervicalgia; M79.602 Pain in left arm; V43.52XA Car driver injured in collision with other type car in traffic accident, initial encounter; Y93.9 Activity, unspecified; Y92.410 Unspecified street and highway as the place of occurrence of the external cause; Y99.8 Other external cause status
CPT/HCPCS: 70450; 72100; 72125; 73060; 73090; 99283; 99284

== ENCOUNTER → 2025-09-03 15:18 | Outpatient (BNV) | payer OTHER, SELFPAY | PROVIDERS: PCP Family Medicine; Visit Provider Radiology Diagnostic Radiology | DX: Z04.3 Encounter for examination and observation following other accident (principal); V89.2XXA Person injured in unspecified motor-vehicle accident, traffic, initial encounter; M51.360 Other intervertebral disc degeneration, lumbar region with discogenic back pain only; M79.602 Pain in left arm | CPT/HCPCS: 70450; 72100; 72125; 73060; 73090 ==